=== PATIENT | female | born 1960 | race Caucasian/White ===

== ENCOUNTER 2016-12-08 15:57 | Inpatient (IN) | payer MEDICAID, OTHER ==
[~2016-12-08] VITALS: Ht 152.4 cm; Wt 99.2 kg
[~2016-12-08 15:57] MED LIST: BACL-19 PO; GABA300C10 PO; HYDR-3307 PO
[2016-12-08] MEDS ORDERED: ALBUTEROL SULFATE 2.5 MG/3 ML ONE (16:19)
[2016-12-08] MEDS ORDERED: ALBUTEROL SULFATE 2.5 MG/3 ML NPPB ONE (16:30)
[2016-12-08] MEDS ORDERED: SODIUM CHLORIDE 0.9% 1,000 ML IV ONE (16:30)
[2016-12-08] MEDS ORDERED: SODIUM CHLORIDE 0.9% 1,000ML IVBOLUS ONE (16:30)
[2016-12-08] MEDS ORDERED: SODIUM CHLORIDE FLUSH 10ML SYR IVF ONE (16:30)
[2016-12-08 16:39] LABS: HEMOGLOBIN 14.6 g/dL (11.7-16.4)
[2016-12-08 16:50] LABS: BLOOD UREA NITROGEN 11 mg/dL (7-18)
[2016-12-08 16:54] LABS: IS PT STATUS REG ER OR PRE ER? YES
[2016-12-08] MEDS ORDERED: LEVOFLOXACIN/PMX 750MG/150ML 150 ML IV ONE (17:30)
[2016-12-08] MEDS ORDERED: ALBUTEROL/IPRATROPIUM 2.5MG/0.5MG, 3 ML ONE ×2 (17:40→22:51)
[2016-12-08] MEDS ORDERED: OMNIPAQUE 350 MG/ML, 100ML BOTTLE ONE (17:43)
[2016-12-08] MEDS ORDERED: LEVOFLOXACIN/PMX 750MG/150ML 150 ML ONE (17:51)
[2016-12-08] MEDS ORDERED: BISACODYL 10 MG SUPP PR PRN (19:30)
[2016-12-08] MEDS ORDERED: POLYETHYLENE GLYCOL 17 GM PACKET PO PRN (19:30)
[2016-12-08] MEDS ORDERED: LABETALOL 5MG/ML, 20ML IV PRN (19:30)
[2016-12-08] MEDS ORDERED: DOCUSATE 100 MG CAPSULE PO PRN (19:30)
[2016-12-08] MEDS ORDERED: ONDANSETRON ODT 4 MG PO PRN (19:30)
[2016-12-08 20:20] VITALS: BP 133/79
[2016-12-08] MEDS: CEFTRIAXONE PMX 2GM/50ML 50 ML IV SCH (20:44)
[2016-12-08] MEDS: GABAPENTIN 300 MG CAPSULE PO SCH (21:22)
[2016-12-08] MEDS: ENOXAPARIN 40 MG/0.4 ML SQ SCH (21:22)
[2016-12-08] MEDS: AZITHROMYCIN 500 MG in SODIUM CHLORIDE 0.9% 250 ML IV SCH (21:22)
[2016-12-08] MEDS: BACLOFEN 10 MG TABLET PO SCH (21:23)
[2016-12-08] MEDS: TRAZODONE 50MG TABLET PO PRN (21:23)
[2016-12-08] MEDS ORDERED: ALBUTEROL SULFATE 2.5 MG/3 ML NPPB PRN (23:00)
[2016-12-09 00:55] VITALS: BP 109/73
[2016-12-09] MEDS: SODIUM CHLORIDE 0.9% 1,000 ML IV SCH ×4 (04:33→23:54)
[2016-12-09] MEDS: HYDROcodone/APAP 10/325 MG TABLET PO PRN ×3 (04:42→20:22)
[2016-12-09] MEDS: ALBUTEROL SULFATE 2.5 MG/3 ML NPPB SCH ×5 (04:55→20:38)
[2016-12-09] MEDS: GUAIFENESIN 100 MG/5 ML, 10ML UDC PO PRN ×3 (05:33→21:24)
[2016-12-09 05:46] LABS: ASPARTATE AMINO TRANSFERASE 8 U/L (15-37); BLOOD UREA NITROGEN 10 mg/dL (7-18); HEMOGLOBIN 12.3 g/dL (11.7-16.4)
[2016-12-09 06:44] VITALS: BP 87/59
[2016-12-09] MEDS: GABAPENTIN 300 MG CAPSULE PO SCH ×3 (09:11→20:21)
[2016-12-09] MEDS: BACLOFEN 10 MG TABLET PO SCH ×3 (09:11→20:21)
[2016-12-09 12:47] VITALS: BP 106/74
[2016-12-09] MEDS: CEFTRIAXONE PMX 2GM/50ML 50 ML IV SCH (20:20)
[2016-12-09 20:22] VITALS: BP 106/72
[2016-12-09] MEDS: ENOXAPARIN 40 MG/0.4 ML SQ SCH (20:22)
[2016-12-09] MEDS: AZITHROMYCIN 500 MG in SODIUM CHLORIDE 0.9% 250 ML IV SCH (21:37)
[2016-12-09] MEDS: TRAZODONE 50MG TABLET PO PRN (21:42)
[2016-12-10 01:33] VITALS: BP 100/66
[2016-12-10] MEDS: GUAIFENESIN 100 MG/5 ML, 10ML UDC PO PRN ×2 (04:47→17:43)
[2016-12-10] MEDS: HYDROcodone/APAP 10/325 MG TABLET PO PRN ×3 (04:47→21:03)
[2016-12-10] MEDS: SODIUM CHLORIDE 0.9% 1,000 ML IV SCH ×2 (05:20→10:56)
[2016-12-10 05:47] LABS: HEMOGLOBIN 11.4 g/dL (11.7-16.4)
[2016-12-10 06:01] LABS: BLOOD UREA NITROGEN 11 mg/dL (7-18)
[2016-12-10] MEDS: ALBUTEROL SULFATE 2.5 MG/3 ML NPPB SCH ×4 (06:55→20:06)
[2016-12-10 07:24] VITALS: BP 94/68
[2016-12-10] MEDS: GABAPENTIN 300 MG CAPSULE PO SCH ×3 (09:22→21:03)
[2016-12-10] MEDS: BACLOFEN 10 MG TABLET PO SCH ×3 (09:22→21:03)
[2016-12-10 13:12] VITALS: BP 104/71
[2016-12-10 19:53] VITALS: BP 156/85
[2016-12-10] MEDS: CEFTRIAXONE PMX 2GM/50ML 50 ML IV SCH (21:02)
[2016-12-10] MEDS: ENOXAPARIN 40 MG/0.4 ML SQ SCH (21:03)
[2016-12-10] MEDS: TRAZODONE 50MG TABLET PO PRN (21:03)
[2016-12-10] MEDS: AZITHROMYCIN 500 MG in SODIUM CHLORIDE 0.9% 250 ML IV SCH (22:37)
[2016-12-11 03:52] VITALS: BP 119/83
[2016-12-11 06:03] LABS: HEMOGLOBIN 10.7 g/dL (11.7-16.4)
[2016-12-11] MEDS: ALBUTEROL SULFATE 2.5 MG/3 ML NPPB SCH ×3 (07:00→15:00)
[2016-12-11 07:41] VITALS: BP 144/98
[2016-12-11] MEDS: GABAPENTIN 300 MG CAPSULE PO SCH ×2 (08:34→15:50)
[2016-12-11] MEDS: BACLOFEN 10 MG TABLET PO SCH ×2 (08:34→15:50)
[2016-12-11] MEDS: GUAIFENESIN 100 MG/5 ML, 10ML UDC PO PRN ×2 (08:34→15:51)
[2016-12-11] MEDS ORDERED: AZITHROMYCIN 250 MG TABLET PO SCH (09:00)
[2016-12-11] MEDS ORDERED: CEFDINIR 300 MG CAPSULE PO SCH (09:00)
[2016-12-11 13:04] VITALS: BP 127/72
[2016-12-11] MEDS ORDERED: HYDR-3307 PO (14:13)
[2016-12-11] MEDS ORDERED: BACL-19 PO (14:13)
[2016-12-11] MEDS ORDERED: GABA300C10 PO (14:13)
[2016-12-11] MEDS ORDERED: AZIT-14 PO (14:35)
[2016-12-11] MEDS ORDERED: CEFD300C2 PO (14:35)
[2016-12-11] MEDS ORDERED: PRED20TA PO (14:35)
== END 2016-12-11 17:23 | disposition home or self-care (01) | DRG 871 ==
LOC: ED 18:30 → EDIP 18:31 → ED 18:49 → 4EST 20:05 → DCLOUNGE 12-11 17:00
PROVIDERS: ADMIT Internal Medicine; ATTEND Internal Medicine
PROC: 0T9B70Z Drainage of Bladder with Drainage Device, Via Natural or Artificial Opening (ICD-10-PCS; principal; 2016-12-10)
DX: A41.9 Sepsis, unspecified organism (principal); J18.9 Pneumonia, unspecified organism; J96.01 Acute respiratory failure with hypoxia; E87.1 Hypo-osmolality and hyponatremia; Z68.41 Body mass index [BMI] 40.0-44.9, adult; E66.9 Obesity, unspecified; F17.210 Nicotine dependence, cigarettes, uncomplicated; K76.0 Fatty (change of) liver, not elsewhere classified; M19.90 Unspecified osteoarthritis, unspecified site; R51 Headache; T38.0X5A Adverse effect of glucocorticoids and synthetic analogues, initial encounter; Z98.890 Other specified postprocedural states; Z79.899 Other long term (current) drug therapy; Z71.6 Tobacco abuse counseling
CPT/HCPCS: 36415; 71010; 71275; 80048; 80053; 81003; 82040; 83605; 83735; 83880; 84439; 84443; 84484; 85025; 87040; 93005; 94640; 96361; 96365; J0456; J0696; J1650; J1956; J7613; Q9967; J7030; J7050; J7512

== ENCOUNTER → 2017-02-05 | Outpatient (CLI) | payer MEDICAID ==
[~2017-02-05] MED LIST changes: +AZIT250T89 PO; +CEFD300C37 PO; +PRED20TA PO
== END | disposition home or self-care (01) ==
LOC: CARD 15:32
PROVIDERS: ATTEND Family Medicine
DX: R05 Cough (principal)
CPT/HCPCS: 94060; 94726; 94729